=== PATIENT | male | born 1955 | race Caucasian/White ===

== ENCOUNTER 2021-06-06 11:48 | Outpatient (CLI) | payer BC | END 2021-06-06 11:49 | disposition home or self-care (01) | LOC: EEG 11:48 | PROVIDERS: ATTEND Family Medicine | DX: I63.9 Cerebral infarction, unspecified (principal); R56.9 Unspecified convulsions; G93.89 Other specified disorders of brain | CPT/HCPCS: 95816; 95957 ==